=== PATIENT | male | born 1990 | race Caucasian/White ===

== ENCOUNTER 2019-02-07 11:44 | Emergency (ER) | payer SELFPAY ==
[~2019-02-07] VITALS: Ht 167.6 cm; Wt 81.8 kg
[~2019-02-07 11:44] MED LIST: EPIN0.3P18 IM
[2019-02-07 11:59] VITALS: BP 143/88
[2019-02-07] MEDS ORDERED: IBUPROFEN 600 MG TABLET PO ONE (12:30)
[2019-02-07] MEDS ORDERED: ValACYclovir HCL 500 MG TABLET PO ONE (12:30)
== END 2019-02-07 12:52 | disposition home or self-care (01) ==
LOC: EMS 11:46
DX: B02.9 Zoster without complications (principal); M54.6 Pain in thoracic spine; F17.210 Nicotine dependence, cigarettes, uncomplicated; Z91.030 Bee allergy status
CPT/HCPCS: 99406

== ENCOUNTER 2019-02-13 17:09 | Emergency (ER) | payer SELFPAY ==
[~2019-02-13] VITALS: Ht 170.2 cm; Wt 81.8 kg
[2019-02-13 18:52] VITALS: BP 132/89
[2019-02-13] MEDS ORDERED: IBUPROFEN 800 MG TABLET PO ONE (19:15)
== END 2019-02-13 19:24 | disposition home or self-care (01) ==
LOC: EMS 17:10
DX: L03.115 Cellulitis of right lower limb (principal); F17.210 Nicotine dependence, cigarettes, uncomplicated; Z91.030 Bee allergy status